=== PATIENT | male | born 1965 | race African-American/Black ===

== ENCOUNTER 2017-09-02 19:21 | Emergency (ER) | payer OTHER ==
[~2017-09-02] VITALS: Ht 200.7 cm; Wt 138.3 kg
[~2017-09-02 19:21] MED LIST: ADALAT CC30 MG PO; COZAAR 50 MG TA50 M2 PO; KEFLEX500 MG PO; NORCO 5-325 TA1 EACH PO; XARELTO15 MG PO
[2017-09-02] MEDS ORDERED: ASPIR 8181 MG PO (20:54)
[2017-09-02 21:21] LABS: URINE BILIRUBIN NEGATIVE (Negative); URINE BLOOD NEGATIVE (Negative); URINE CLARITY CLEAR; URINE COLOR YELLOW; URINE GLUCOSE-RANDOM* NEGATIVE (Negative); URINE KETONES NEGATIVE (Negative); URINE LEUKOCYTES NEGATIVE (Negative); URINE NITRITE NEGATIVE (Negative); URINE PROTEIN (DIPSTICK) NEGATIVE (Negative); URINE SPECIFIC GRAVITY 1.025 (1.005-1.035); URINE UROBILINOGEN 0.2 E.U./dl (0.2-1.0)
[2017-09-02 21:23] LABS: ABSOLUTE NEUTROPHILS 8.1 thou/uL (1.4-8.2); BASOPHILS 0.6 % (0.0-2.0); EOSINOPHILS 1.9 % (0.0-3.0); HEMATOCRIT 42.6 % (42.0-52.0); HEMOGLOBIN 14.9 gm/dL (14.0-18.0); LYMPHOCYTES 21.7 % (24.0-44.0); MCH 29.4 pg (26.0-34.0); MCHC 34.9 g/dL (28.0-37.0); MCV 84.3 fL (80.0-100.0); MONOCYTES 7.4 % (1.0-8.0); PLATELET COUNT 213 thou/uL (150-400); POLYS 68.4 % (36.0-66.0); RBC 5.05 mil/uL (4.50-6.00); RDW 12.8 % (10.5-14.5); WBC 11.9 thou/uL (4.0-11.0)
[2017-09-02 21:30] LABS: CALCIUM 8.6 mg/dL (8.5-10.1); CREATININE 1.3 mg/dL (0.7-1.3); POTASSIUM 3.9 mmol/L (3.5-5.1)
[2017-09-02 21:36] LABS: ALBUMIN 4.1 g/dL (3.4-5.0); DIRECT BILIRUBIN 0.2 mg/dL (<0.1-0.3); TOTAL BILIRUBIN 0.7 mg/dL (<0.1-1.0); TOTAL PROTEIN 7.6 g/dL (6.4-8.2)
[2017-09-02] MEDS ORDERED: ONDANSETRON HCL4 M2 PO (22:22)
[2017-09-02 22:33] VITALS: BP 149/87
== END 2017-09-02 22:33 | disposition home or self-care (01) ==
LOC: ER 19:21
PROVIDERS: Nurse Practitioner
DX: K52.9 Noninfective gastroenteritis and colitis, unspecified (principal); I10 Essential (primary) hypertension

== ENCOUNTER 2020-04-11 21:50 | Emergency (ER) | payer OTHER ==
[~2020-04-11] VITALS: Ht 200.7 cm; Wt 138.3 kg
[~2020-04-11 21:50] MED LIST changes: +ASPIR 8181 MG PO; +ONDANSETRON HCL4 M2 PO
[2020-04-12] MEDS ORDERED: AZITHROMYCIN250 MG PO (00:26)
[2020-04-12 00:34] VITALS: BP 125/71
--- NOTE | 2020-04-12 07:23 | EKG ---
[address] [address] ELECTROCARDIOGRAM REPORT Name: HUI CURRIE MATT III [facility] [id number] Admission: 04/11/20 Attend Phys: Discharge: 04/12/20 Date of : 61 Report #: [id number] [facility] ED Test Date: 2020-04-11 Test Time: 21:52:51 Pat Name: HUI CURRIE Department: Room: Gender: Log Rafter: adrienne : 1965 Requested By: Je Alejandra Order Number: [id number] MD: Naga Noel Measurements Intervals [place] Rate: 99 P: 46 CA: 165 QRS: 82 QRSD: 98 T: -6 QT: 341 QTc: 438 Interpretive Statements Sinus rhythm Borderline T wave abnormalities No previous ECG available for comparison Electronically Signed On 04-12-2020 7:23:28 BLOCK TESTER by Naga Noel [email or web address] <ELECTRONICALLY SIGNED> By: Naga Noel MD, [facility] 04/12/20 0723 [id number] 51 Naga Noel MD, FACC /EPI
== END 2020-04-12 00:43 | disposition home or self-care (01) ==
LOC: ER 21:50
DX: U07.1 COVID-19 (principal); J18.9 Pneumonia, unspecified organism; I10 Essential (primary) hypertension; Z79.82 Long term (current) use of aspirin; Z79.899 Other long term (current) drug therapy

== ENCOUNTER 2020-10-03 00:24 | Emergency (ER) | payer OTHER ==
[~2020-10-03] VITALS: Ht 200.7 cm; Wt 138.3 kg
[~2020-10-03 00:24] MED LIST changes: +AZITHROMYCIN250 MG PO
[2020-10-03] MEDS ORDERED: AUGMENTIN 875-1 EACH PO (01:48)
[2020-10-03 01:52] VITALS: BP 140/89
== END 2020-10-03 01:53 | disposition home or self-care (01) ==
LOC: ER 00:24
DX: S71.152A Open bite, left thigh, initial encounter (principal); I10 Essential (primary) hypertension; W54.0XXA Bitten by dog, initial encounter; Y93.89 Activity, other specified; Y92.89 Other specified places as the place of occurrence of the external cause; Y99.8 Other external cause status